=== PATIENT | female | born 1960 | race Caucasian/White ===

== ENCOUNTER 2017-05-22 16:10 | Outpatient (CLI) | payer OTHER | END 2017-05-22 16:11 | disposition home or self-care (01) | LOC: CTENTCT 16:10 | PROVIDERS: ATTEND Otolaryngology Plastic Surgery within the Head & Neck | DX: J32.9 Chronic sinusitis, unspecified (principal) | CPT/HCPCS: 70486 ==

== ENCOUNTER 2018-04-04 09:42 | Outpatient (CLI) | payer OTHER ==
--- NOTE | 2018-04-17 11:46 | MMO ---
BILATERAL DIGITAL SCREENING MAMMOGRAMS: Date: 04/04/18 HISTORY: 57-year-old female presents for digital screening mammogram. COMPARISON: 03/03/07. FINDINGS: This patient's mammogram was interpreted with the assistance of computer-aided detection. Scattered fibroglandular densities are noted bilaterally. There are some stable parenchymal density a symmetries bilaterally. No direct or indirect evidence of malignancy. Overall, the breasts are much l ess dense than on the prior mammogram. IMPRESSION: BIRADS 2: Benign Finding(s) Continue routine screening. POS: [facility]
== END 2018-04-04 09:43 | disposition home or self-care (01) ==
LOC: SCSMAMMO 09:42
PROVIDERS: ATTEND Family Medicine
DX: Z12.31 Encounter for screening mammogram for malignant neoplasm of breast (principal)
CPT/HCPCS: 77067